=== PATIENT | female | born 1995 | race Hispanic/Latino ===

== ENCOUNTER → 2017-02-06 | Outpatient (CLI) | payer SELFPAY ==
--- NOTE | 2017-02-06 11:22 | DI ---
AP PELVIS and RIGHT HIP, 02/06/2017 10:25 AM: Clinical History: Right hip pain. Previous Exam: None at this facility. There is no soft tissue abnormality. The bony structures of the pelvis are normal. 2 views of the rig ht hip are normal. Readin. Normal right hip exam. 2. The AP pelvis view is unremarkable.
--- NOTE | 2017-02-06 11:24 | DI ---
RIGHT KNEE, 02/06/2017 10:25 AM: Clinical History: Acute right knee pain. Previous Exam: None at this facility. 3 views are submitted. The AP projection is a weightbearing view. There is no acute soft tissue, osse ous, or joint abnormality. Reading: Normal right knee exam.
== END ==
LOC: MOB RAD 10:27
PROVIDERS: ATTEND Physician Assistant
DX: M25.561 Pain in right knee (principal); M25.551 Pain in right hip
CPT/HCPCS: 73502; 73562